=== PATIENT | female | born 2000 | race Caucasian/White ===

== ENCOUNTER → 2023-06-09 00:47 | Day surgery (SDC) | payer OTHER, SELFPAY ==
--- NOTE | 2023-06-06 07:06 | PM.IMHP ---
H&P: HPI History of Present Illness Date/Time: 06/06/23 07:06 Chief Complaint: Dilatation Narrative: 22 full presents for sterilization. The patient has never but desires . She has had was with control is desires tubal ligation. She has tried an IUD she has tried the next she has tried pills patches she is admitted for tubal ligation. Despite for you she appears sure herself. She is the care services removed for sterilization. Risks and benefits reviewed in great detail. She had all questions answered. She asked to proceed Exam Const: General: cooperative, healthy appearing and comfortable Nutritional Appearance: average body habitus Orientation/consciousness: oriented to person, oriented to place and oriented to time Resp: Effort & Inspection: normal respiratory effort Cardio: Rate: regular rate Rhythm: regular rhythm Heart sounds: S1 normal heart sound present and S2 normal heart sound present GI: Inspection: normal to inspection : External Female Exam: normal external appearance Speculum Exam - Vagina: normal appearance of the vagina Speculum Exam - Cervix: normal appearance of the cervix Bimanual exam- vagina & uterus: non-tender and soft Bimanual Exam- Adnexa, other: normal adnexae Assessment and Plan Assessment and plan (1) Sterilization: Code(s): Z30.2 - Encounter for sterilization Status: Acute Plan Will proceed with laparoscopic bilateral tubal ligation
[2023-06-06 08:41] VITALS: BMI 26.2
--- NOTE | 2023-06-06 08:42 | PC.NURSE ---
Report to the Outpatient Waiting Room, entrance under the green pavilion located off [facility], at time _0600_ on date _[id number]_. Planned Procedure Time: _0730_. Time changes happen often and if your time is changed the preop area will call you the afternoon before. - You and your visitor will be asked to self-screen and do not enter if you have any COVID symptoms. - A mask is optional within the hospital at this time. Patients may have clear liquids (water, carbonated beverages, clear teas, apple juice) until 3 hours prior to surgery with a maximum of 20 ounces. - No food from midnight until time of surgery Take the following medications with a SIP of water the morning of surgery: ____None DO NOT STOP ANY OF YOUR OTHER PRESCRIPTION MEDICATIONS PRIOR TO SURGERY ?EXCEPT THE FOLLOWING Medications to discontinue per physician None Date to take last dose Please no make-up, nail malay, hairspray, perfume, deodorant, or body powder the day of surgery. No jewelry (including any body piercings) or valuables the day of surgery, leave them at home. Please take a shower or bath the night before, or the morning of, surgery with an antibacterial soap. Wear comfortable, loose fitting clothing. - Jewelry must be removed prior to entering the operating room. Rings and piercings that are not removed may be cut off. - The hospital will not accept responsibility for valuables. - Please leave all valuables, including medications, at home the day of surgery. If you are going home after surgery, a licensed [place] driver must drive you home. - NO public transportation without another adult if you receive anesthesia. - We recommend that an adult stay with you for 24 hours following discharge. - We also recommend that you do not drive, make important decision, drink alcoholic beverages, or take any drugs that were not prescribed by your health care provider for at least 24 hours after your discharge time. Follow any additional instructions given to you from your surgeon. If you or anyone in your household have experienced Covid symptoms in the past week, please notify your surgeon or the nurse liaison at the phone number below for possible testing. Telephone instructions given to __Rebekkarin____and asked if any additional questions and then verbalized understanding. Patient advised to call surgeon office or pre surgery nurse liaison [phone] if any additional questions.
--- NOTE | 2023-06-08 13:11 | WPDANESEPPF ---
Anes - Initial Pre Proc Eval Procedure: Operation Date: 06/09/23 07:30 Proposed Procedures p Laparoscopic Bilateral Tubal Sterilization with Rings - Wayne Muñiz MD Date/Time: 06/08/23 13:11 Surgeon: Wayne Mñuiz MD Pre Op Diagnosis: Desire Sterilization Patient Data Age: 22 Gender: F Height: 1.6 m Weight: 67.2 kg Allergies Allergy/AdvReac Type Severity Reaction Status Date / Time iodine Allergy Severe Anaphylactic Verified 06/06/23 08:33 Shock Home Medications Medication Instructions Recorded Confirmed Type albuterol 90 mcg/actuation aerosol 90 mcg inhalation TID PRN Dyspnea 06/06/23 06/06/23 History inhaler cetirizine 10 mg tablet (Zyrtec) 10 mg PO DAILY 06/06/23 06/06/23 History fluoxetine 40 mg capsule (Prozac) 40 mg PO HS 06/06/23 06/06/23 History lamotrigine 25 mg tablet (Lamictal) 25 mg PO HS 06/06/23 06/06/23 History hydrocodone 5 mg-acetaminophen 325 1 tablet PO Q4H PRN pain #20 tabs 06/09/23 Rx mg tablet Patient hx anesthesia problems: none Family hx anesthesia problems: none Results Review: All pre-operative results and documents have been reviewed as part of the pre-operative evaluation. [facility] Past Medical History Medical History (Updated 06/08/23 @ 13:11 by Joel Duke DO) Anemia Asthma Bipolar disorder Social History Social History (Updated 06/09/23 @ 06:56 by Joel Duke DO) Smoking status: Never smoker Substance use type: marijuana Other substance usage details: daily Living arrangements: with family Spiritual care concerns: No Anes - Eval Final PreProcedure Day of Procedure 06/08/23 13:11 Patient weight: overweight Heart: regular rate and rhythm Lungs: clear to auscultation Airway: Mallampati scale class II Neurological: alert and oriented Last oral intake: >/= 8 hours ASA classification: III Emergent: no Anesthetic plan: proceed Anesthesia type and monitoring: general ETT and standard monitoring Results Review: All pre-operative results and documents have been reviewed as part of the pre-operative evaluation. Informed Consent: The patient's anesthetic plan and its attendant risks and benefits were discussed with the patient/family/POA. Questions were solicited and answers provided to the satisfaction of the patient/family/POA.
[2023-06-09] VITALS (9 sets, daily range): BP systolic 96–120; BP diastolic 54–85; PULSE 72–110; RESP 16–32; TEMP 36.6; O2SAT 94–100
[2023-06-09] MEDS: KETOROLAC 15 MG/ML VIAL (*BKC) IV PUSH ×2 (06:30→10:00)
[2023-06-09] MEDS: LACTATED RINGERS 1,000 ML 30 ML IV CONT ×2 (06:30→08:38)
--- NOTE | 2023-06-09 06:30 | WPDHPUPDATE1 ---
History and Physical Update Update Date/Time: 06/09/23 06:30 History and Physical has been reviewed, including an updated exam of the patient. There are NO changes in the patient's condition. Risks, benefits, and alternatives have been discussed and questions answered. Patient agrees to proceed with procedure.
[2023-06-09] MEDS: ACETAMINOPHEN 500 MG TABLET 1000 MG PO (07:50)
--- NOTE | 2023-06-09 07:55 | W.PM.PROC2 ---
Procedure Note - Detailed Date of Procedure 06/09/23 Pre-op Diagnosis Desire Sterilization Post-op Diagnosis Same Procedure Performed Laparoscopic bilateral tubal ligation with silastic rings Surgeon Wayne Muñiz MD Anesthesia General Indications 22-year-old female who desires permanent irreversible sterilization Findings appearing ovaries tubes and uterus as well as gallbladder and liver and appendix Description of Procedure the patient was prepped draped in the normal sterile fashion placed in the dorsal lithotomy position. Under excellent general endotracheal anesthesia weighted speculum placed in posterior fornix vagina. Anterior lip of the cervix grasped with single-tooth tenaculum. Dooley's cannula inserted the cervix and attached to the single-tooth to be used later for uterine ablation. After emptying the bladder of clear urine the weighted speculum was removed and the gloves were changed. An infraumbilical incision made the Veress needle passed in the abdomen. Abdomen filled with CO2 gas to 15mm Hg. The 5mm trocar advanced under direct visualization with the operative scope and no injury seen P. Patient placed in Trendelenburg an 8mm trocar advanced in the suprapubic area under direct visualization assuring no injury. The the right and left to tubes were grasped starting with the right which was grasped in the midline and a good knuckle of tube formed with the Falope ring. This was repeated on the contralateral side with the left Falope ring. The liver gallbladder appendix all appeared within normal limits. The instruments were withdrawn and the gas removed from the abdomen. The trocars removed the incisions closed with 4 Monocryl glue. Blood loss 5cc all sponge, needle, instrument counts were correct. There were no immediate complications Estimated Blood Loss 5 Drains No Packing No Pathology None sent Complications No immediate complications Condition Stable Disposition PACU
[2023-06-09] MEDS: HYDROmorphone HCL INJ (*CRX) 1 MG/ML SYR IV PUSH (08:10)
[2023-06-09] MEDS: HALOPERIDOL LACTATE 5 MG/ML VIAL 2 MG IV PUSH (08:10)
[2023-06-09] MEDS: fentaNYL CITRATE INJ (*CRX) 100 MCG/2 ML VIAL 25 MCG IV PUSH ×8 (08:29→08:54)
[2023-06-09] MEDS: oxyCODONE HCL (*CRX) 5 MG TAB IR PO (09:25)
[2023-06-09] MEDS: ONDANSETRON INJ 4 MG/2 ML VIAL IV PUSH (10:00)
== END | disposition home or self-care (01) ==
PROVIDERS: PCP Nurse Practitioner Family; Visit Provider Obstetrics & Gynecology
PROC: (CPT 58671; principal; 2023-06-09 07:30)
DX: Z30.2 Encounter for sterilization (principal); D64.9 Anemia, unspecified; J45.909 Unspecified asthma, uncomplicated; F31.9 Bipolar disorder, unspecified; F12.90 Cannabis use, unspecified, uncomplicated; Z79.51 Long term (current) use of inhaled steroids; Z79.891 Long term (current) use of opiate analgesic
CPT/HCPCS: 58671; A4264; A9270; J0330; J1100; J1170; J1630; J1885; J2250; J2405; J2704; J3010; J7120

== ENCOUNTER 2023-06-12 09:58 | Emergency (ER) | payer OTHER, SELFPAY ==
--- NOTE | ~2023-06-12 | NM_ITS ---
EXAMINATION: NM lung vent and perfusion DATE: 06/12/2023 11:30 INDICATION: Shortness of breath. TECHNIQUE: 10.4 mCi Xenon-133 was administered for ventilation images. 5.21 mCi Tc-99m MAA was admini stered intravenously for perfusion images. Scintigraphic images of the chest were obtained. COMPARISON: Chest 2 views 06/12/2023 FINDINGS: Ventilation images demonstrate no defects. Perfusion images show a small defect in left lower lobe. IMPRESSION: 1. Low probability for pulmonary embolism. Reviewed, dictated and finalized at location A.
--- NOTE | ~2023-06-12 | XR_ITS ---
EXAMINATION: XR chest 2V DATE: 06/12/2023 10:36 INDICATION: Shortness of breath and fever. TECHNIQUE: Frontal and lateral views of the chest were obtained. COMPARISON: None. FINDINGS: There is no pneumonia, pleural effusion, or pneumothorax. The heart size is normal. IMPRESSION: 1. No acute cardiopulmonary disease. Reviewed, dictated and finalized at location A.
[2023-06-12 10:06] VITALS: BP 115/59; PULSE 88; RESP 18; TEMP 36.8; O2SAT 100
--- NOTE | 2023-06-12 10:08 | ED.FEVER ---
HPI - Fever General Chief Complaint: Fever Stated Complaint: tubal lig surgery, fever and SOB Time Seen by Provider: 06/12/23 10:03 Source: patient Mode of arrival: ambulatory Limitations: no limitations History of Present Illness HPI Narrative: Nery is a 22-year-old female patient presenting to the emergency room today with complaints of shortness of breath and fever. She reports that she developed a 99.2? F fever last night and was sweaty. She is reporting some shortness of breath. She had a tubal ligation surgery done on Monday-3 days ago. Also is reporting some hives around her abdomen and chest. History of asthma. Has not been able to roll picker prescriptions due to not having a provider. States she has an EpiPen, albuterol, and Advair. She has an allergy to iodine. Related Data Home Medications Medication Instructions Recorded Confirmed albuterol 90 mcg/actuation aerosol 90 mcg inhalation TID PRN Dyspnea 06/06/23 06/09/23 inhaler cetirizine 10 mg tablet (Zyrtec) 10 mg PO DAILY 06/06/23 06/09/23 fluoxetine 40 mg capsule (Prozac) 40 mg PO HS 06/06/23 06/09/23 lamotrigine 25 mg tablet (Lamictal) 25 mg PO HS 06/06/23 06/09/23 Allergies Allergy/AdvReac Type Severity Reaction Status Date / Time iodine Allergy Severe Anaphylactic Verified 06/09/23 08:26 Shock Review of Systems Review of Systems: Pertinent positives per HPI. Patient denies any chills, headache, visual changes, dizziness, cough, runny nose, sore throat, chest pain, palpitations, nausea, vomiting, diarrhea, constipation, abdominal pain, or any urinary issues. [facility] Past Medical History Medical History Anemia Asthma Bipolar disorder Social History Social History Smoking status: Never smoker Substance use type: marijuana Other substance usage details: daily Living arrangements: with family Spiritual care concerns: No Comments At the time of my signature, I reviewed and agree with the nursing past medical, surgical, social, and family history. There is no relevant family history pertinent to the patient complaint. Exam Narrative: General: Well-developed, well nourished, in no apparent distress. Head: Normocephalic, atraumatic. Cardio: Regular rate and rhythm, s1 and s2 normal, no murmur appreciated. Resp: Clear to auscultation bilaterally, no rhonchi, rales, wheezing or rubs. Abdomen: Soft, pliable, bowel sounds present in all quadrants, non-tender to palpation, no organomegly, no CVAT tenderness. Surgery site shows no sign of redness or purulent discharge Integumentary: [place], warm, and dry, intact without lesion, red raised hive-like rash to the abdomen and chest Course Course Emergency Course: Portions of this record may have been created with voice recognition software. Vital Signs Vital signs: Vital Signs Temperature 36.8 C 06/12/23 10:06 Pulse Rate 88 06/12/23 10:06 Respiratory Rate 18 06/12/23 10:06 Blood Pressure 115/59 L 06/12/23 10:06 Pulse Oximetry 100 06/12/23 10:06 Temperature 36.8 C 06/12/23 10:06 Pulse Rate 88 06/12/23 10:06 Respiratory Rate 18 06/12/23 10:06 Blood Pressure 115/59 L 06/12/23 10:06 Pulse Oximetry 100 06/12/23 10:06 Vital signs reviewed MDM - Fever MDM Narrative Medical decision making narrative: At the time of visit patient is resting comfortably on the exam table. Patient appears to be nontoxic. Labs: CBC shows white blood cell count of 5.8, H&H of 12.2 and 36.5, platelet counts 200, chemistry shows sodium a 138, potassium of 4.0, chloride 106, BUN of 12, creatinine 0.5, GFR greater than 60, liver function tests normal, COVID, RSV, and influenza testing negative Diagnostics: Chest x-rays negative for any acute cardiopulmonary process. NM perfusion-shows low probability for PE Medications given: 125 m
[2023-06-12 10:33] LABS: Basophils Absolute Auto 0.1 K/mm3 (0.0-0.1); Basophils Percent Auto 0.9 % (0.2-1.2); Eosinophils Absolute Auto 0.2 K/mm3 (0-0.3); Hematocrit 36.5 % (37.0-47.0); Hemoglobin 12.2 g/dL (12.0-15.0); Immature Granulocyte Absolute 0.01 K/mm3 (0.00-0.031); Immature Granulocyte Percent A 0.2 % (0-0.5); Lymphocytes Absolute Auto 1.52 K/mm3 (0.9-3.2); Lymphocytes Percent Auto 26.4 % (18.3-44.2); Mean Corpuscular HGB Conc 33.4 g/dl (32-36); Mean Corpuscular Hemoglobin 31.3 pg (26-34); Mean Corpuscular Volume 93.6 fl (80-100); Mean Platelet Volume 9.4 fl (7.4-10.4); Monocytes Absolute Auto 0.3 K/mm3 (0.1-0.6); Monocytes Percent Auto 5.6 % (2.6-8.5); Neutrophils Absolute Auto 3.7 K/mm3 (1.3-6.7); Neutrophils Percent Auto 63.9 % (45.5-73.1); Platelet Count Result 200 k/mm3 (150-375); Red Cell Distribution Width 12.2 % (11.5-14.5); White Blood Count 5.8 K/mm3 (4.5-10.0)
[2023-06-12] MEDS: methylPREDNISolone SOD SUCC 125 MG VIAL IV PUSH (10:46)
[2023-06-12 10:47] LABS: Alanine Aminotransferase 11 U/L (6-35); Albumin Level 4.4 g/dL (3.5-5.1); Alkaline Phosphatase 68 U/L (38-126); Anion Gap 6 mmol/L (4-12); Aspartate Amino Transferase 16 U/L (14-36); Bilirubin,Total 0.6 mg/dL (0.2-1.3); Blood Urea Nitrogen 12 mg/dL (7-17); Calcium 9.6 mg/dL (8.4-10.2); Carbon Dioxide 26 mmol/L (22-30); Chloride 106 mmol/L (98-107); Estimated CRCL calculation 132 ml/min; Estimated Glomerular Filt Rate > 60; Glucose 90 mg/dL (65-110); Sodium 138 mmol/L (137-145)
[2023-06-12 11:08] LABS: Influenza A QL RT-PCR Negative (Negative); Influenza B QL RT-PCR Negative (Negative); RSV RNA, RT-PCR Negative (Negative); SARS-CoV-2 RNA PCR Negative (Negative)
[2023-06-12 11:59] LABS: Prothrombin Time 13.2 Seconds (11.1-14.7)
[2023-06-12 12:00] LABS: Partial Thromboplastin Time 27.9 Seconds (22.3-36.8)
== END 2023-06-12 12:54 | disposition home or self-care (01) ==
PROVIDERS: Emergency Provider Nurse Practitioner Family; PCP Nurse Practitioner Family
DX: R06.00 Dyspnea, unspecified (principal); L50.9 Urticaria, unspecified; Z76.0 Encounter for issue of repeat prescription; Z20.822 Contact with and (suspected) exposure to COVID-19; J45.909 Unspecified asthma, uncomplicated; F31.9 Bipolar disorder, unspecified; D64.9 Anemia, unspecified
CPT/HCPCS: 36415; 71046; 78582; 80053; 85025; 85610; 85730; 87637; 96374; 99284; A9540; A9558; J2919